=== PATIENT | male | born 1950 | race Caucasian/White ===

== ENCOUNTER 2019-04-04 16:06 | Emergency (ER) | payer OTHER ==
[2019-04-04 16:52] VITALS: BP 170/95; PULSE 65
--- NOTE | 2019-04-04 17:35 | EDM.PDOC ---
ED HPI GENERAL MEDICAL PROBLEM - General Chief Complaint: General Stated Complaint: ARTHRITIS Time Seen by Provider: 04/04/19 17:25 Source of Information: Reports: Patient, RN Notes Reviewed History Limitations: Reports: No Limitations - History of Present Illness INITIAL COMMENTS - FREE TEXT/NARRATIVE: 68-year-old gentleman presents emergency department a complaint of chest pain, he states he injured himself yesterday when he was working on his pickup changing oil he got into a certain position sudden onset of chest pain right side of his chest there is no nausea no vomiting no diaphoresis no shortness of breath he states he has had chest pain in the past when he exerts himself may last 10 to 15 minutes and then resolves he states he does exercise every morning without any chest pain. Does have a history of anxiety and is concerned about his heart - Related Data Allergies Allergy/AdvReac Type Severity Reaction Status Date / Time amlodipine Allergy Other Verified 04/04/19 17:10 chamomile flower Allergy Other Verified 04/04/19 17:10 diphenhydramine HCl Allergy Anaphylactic Verified 04/04/19 17:10 [From Benadryl] Shock levofloxacin Allergy Other Verified 04/04/19 17:10 magnesium hydroxide Allergy Swelling Verified 04/04/19 17:10 [From Milk of Magnesia] mirtazapine Allergy Other Verified 04/04/19 17:10 tamsulosin Allergy Other Verified 04/04/19 17:10 venom-honey bee Allergy Anaphylactic Verified 04/04/19 17:10 [bee venom (honey bee)] Shock Home Meds: Home Meds Acetaminophen [Non-Aspirin] 325 mg PO Q6HR PRN 02/23/13 [History] Clotrimazole [Clotrimazole 1%] 15 gm .XX BID PRN 02/23/13 [History] EPINEPHrine [Epipen] 0.3 mg IM ASDIRECTED PRN 02/23/13 [History] Nitroglycerin [Nitrostat] 0.4 mg SL ASDIRECTED PRN 02/23/13 [History] Psyllium [Metamucil] 1 scoop PO DAILY 02/23/13 [History] Betamethasone Dipropionate [Diprosone 0.05% Crm] 15 gm .XX BID PRN 10/23/16 [ History] Diclofenac Sodium [Voltaren] 100 gm TP BID PRN 10/23/16 [History] LORazepam 0.25 mg PO TID PRN 10/23/16 [History] Valsartan 160 mg PO DAILY PRN 10/23/16 [History] Past Medical History Cardiovascular History: Reports: Hypertension Genitourinary History: Reports: BPH, Renal Calculus Musculoskeletal History: Reports: Arthritis Psychiatric History: Reports: Anxiety, PTSD Social & Family History - Tobacco Use Smoking Status *Q: Never Smoker - Caffeine Use Caffeine Use: Reports: Coffee - Recreational Drug Use Recreational Drug Use: No ED ROS GENERAL - Review of Systems Review Of Systems: See Below Constitutional: Reports: No Symptoms HEENT: Reports: No Symptoms Respiratory: Reports: No Symptoms Cardiovascular: Reports: Chest Pain GI/Abdominal: Reports: No Symptoms ED EXAM, GENERAL - Physical Exam Exam: See Below Exam Limited By: No Limitations General Appearance: Alert, WD/WN, No Apparent Distress Respiratory/Chest: No Respiratory Distress, Lungs Clear, Normal Breath Sounds, No Accessory Muscle Use, Other (Tender to palpation between ribs 4 and 5 right side) Cardiovascular: Regular Rate, Rhythm, No Murmur GI/Abdominal: Soft, Non-Tender Course - Vital Signs Last Recorded V/S: Last Vital Signs Temp 96.5 F L 04/04/19 17:08 Pulse 65 04/04/19 17:08 Resp 16 04/04/19 17:08 BP 170/95 H 04/04/19 17:08 Pulse Ox 95 04/04/19 17:08 - Orders/Labs/Meds Orders: Active Orders 24 hr Category Date Time Status Cardiac Monitoring [RC] .As Directed Care 04/04/19 17:33 Active EKG Documentation Completion [RC] ASDIRECTED Care 04/04/19 17:34 Active EKG 12 Lead [EK] Stat Ther 04/04/19 17:34 Ordered Labs: Laboratory Tests 04/04/19 04/04/19 Range/Units 17:40 17:40 WBC 4.7 (4.5-11.0) K/uL RBC 5.22 (4.30-5.90) M/uL Hgb 14.9 (12.0-15.0) g/dL Hct 45.1 (40.0-54.0) % MCV 86 (80-98) fL MCH 29 (27-31) pg MCHC 33 (32-36) % Plt Count 261 (150-400) K/uL Neut % (Auto) 44 (36-66) % Lymph % (Auto) 42 (24-44) % [place] % (Auto) 12 H (2-6) % Eos % (Auto) 1 L (2-4) % Baso % (Auto) 1 (0-1) % Sodium 144 (140-148) mmol/L Potassium 3.9 (3.6-5.2) mmol/L Chloride 105 (100-108) mmol/L Carbon Dioxide 29 (21-32) mmol/L Anion Gap 9.8 (5.0-14.0) mmol/L BUN 12 (7-18) mg/dL Creatinine 0.9 (0.8-1.3) mg/dL Est Cr Clr Drug Dosing 78.11 mL/min Estimated GFR (MDRD) > 60 (>60) Glucose 99 (74-106) mg/dL Calcium 8.8 (8.5-10.1) mg/dL Total Bilirubin 0.5 (0.2-1.0) mg/dL AST 24 (15-37) U/L ALT 33 (12-78) U/L Alkaline Phosphatase 74 (46-116) U/L Troponin I < 0.017 (0.000-0.056) ng/mL Total Protein 7.6 (6.4-8.2) g/dL Albumin 4.0 (3.4-5.0) g/dL Globulin 3.6 H (2.3-3.5) g/dL Albumin/Globulin Ratio 1.1 L (1.2-2.2) Departure - Departure Time of Disposition: 18:16 Disposition: Home, Self-Care 01 Condition: Fair Clinical Impression: Chest wall pain - Discharge Information Instructions: Chest Wall Pain, [id number] Referrals: Alisa Victoria MD [Primary Care Provider] - Forms: ED Department Discharge Additional Instructions: Use ibuprofen as needed for pain control, please followup with your primary care provider in 3-5 days if not better, please call return to the emergency department with worsening of symptoms. Sepsis Event Note - Evaluation Sepsis Screening Result: No Definite Risk - Focused Exam Vital Signs: Vital Signs Temp Pulse Resp BP Pulse Ox 04/04/19 17:08 96.5 F L 65 16 170/95 H 95 04/04/19 16:51 96.5 F L 65 16 170/95 H 95 Date Exam was Performed: 04/04/19 Time Exam was Performed: 18:14 - My Orders Last 24 Hours: My Active Orders 04/04/19 17:33 Cardiac Monitoring [RC] .As Directed 04/04/19 17:34 EKG Documentation Completion [RC] ASDIRECTED EKG 12 Lead [EK] Stat - Assessment/Plan Last 24 Hours: My Active Orders 04/04/19 17:33 Cardiac Monitoring [RC] .As Directed 04/04/19 17:34 EKG Documentation Completion [RC] ASDIRECTED EKG 12 Lead [EK] Stat Plan: assesment: chest wall pain plan: ib as needed, f/u with pcp as needed
== END 2019-04-04 18:30 | disposition home or self-care (01) ==
LOC: JP.ED 16:06
DX: R07.89 Other chest pain (principal); I10 Essential (primary) hypertension; M19.90 Unspecified osteoarthritis, unspecified site; F41.9 Anxiety disorder, unspecified; Z88.8 Allergy status to other drugs, medicaments and biological substances; Z91.030 Bee allergy status; Z91.048 Other nonmedicinal substance allergy status; Z79.899 Other long term (current) drug therapy
CPT/HCPCS: 36415; 80053; 84484; 85025; 93005; 93010; 99283; 99285-25

== ENCOUNTER 2019-10-16 09:55 | Emergency (ER) | payer OTHER ==
[2019-10-16 10:17] VITALS: BP 160/87; PULSE 64
[2019-10-16] MEDS ORDERED: Cetirizine 10 MG Tab PO ONE (10:48)
[2019-10-16] MEDS ORDERED: Dexamethasone 4 MG/ML SDV PO ONE (10:48)
[2019-10-16] MEDS ORDERED: Dexamethasone 4 MG/ML SDV ONE (10:55)
--- NOTE | 2019-10-16 10:56 | EDM.PDOC ---
ED HPI GENERAL MEDICAL PROBLEM - General Chief Complaint: Bite:Animal, Insect Stated Complaint: BEE STINGS Time Seen by Provider: 10/16/19 10:50 Source of Information: Reports: Patient History Limitations: Reports: No Limitations - History of Present Illness INITIAL COMMENTS - FREE TEXT/NARRATIVE: Vinny is a 69 year old male, presents to the ED today after being stung in left arm by a bee, patient stung he thinks 3-4 times. Patient has hx of bee sting allergy, has epi-pens at home but did not use them, instead he called the nurse line who directed patient here. Patient c/o burning to left arm where he was stung, he denies any other reactions at the time of my exam which was approximately 1.5 hours s/p stings. Patient denies any sob, tongue swelling, difficulty swallowing or other complaints. Onset: Sudden - Related Data Allergies Allergy/AdvReac Type Severity Reaction Status Date / Time amlodipine Allergy Other Verified 10/16/19 10:23 chamomile flower Allergy Other Verified 10/16/19 10:23 diphenhydramine HCl Allergy Anaphylactic Verified 10/16/19 10:23 [From Benadryl] Shock levofloxacin Allergy Other Verified 10/16/19 10:23 magnesium hydroxide Allergy Swelling Verified 10/16/19 10:23 [From Milk of Magnesia] mirtazapine Allergy Other Verified 10/16/19 10:23 tamsulosin Allergy Other Verified 10/16/19 10:23 venom-honey bee Allergy Anaphylactic Verified 10/16/19 10:23 [bee venom (honey bee)] Shock Home Meds: Home Meds Acetaminophen [Non-Aspirin] 325 mg PO Q6HR PRN 02/23/13 [History] Clotrimazole [Clotrimazole 1%] 15 gm .XX BID PRN 02/23/13 [History] EPINEPHrine [Epipen] 0.3 mg IM ASDIRECTED PRN 02/23/13 [History] Nitroglycerin [Nitrostat] 0.4 mg SL ASDIRECTED PRN 02/23/13 [History] Psyllium [Metamucil] 1 scoop PO DAILY 02/23/13 [History] Betamethasone Dipropionate [Diprosone 0.05% Crm] 15 gm .XX BID PRN 10/23/16 [History] Diclofenac Sodium [Voltaren] 100 gm TP BID PRN 10/23/16 [History] LORazepam 0.25 mg PO TID PRN 10/23/16 [History] Valsartan 160 mg PO DAILY PRN 10/23/16 [History] Finasteride [Proscar] 1 tab PO DAILY 10/16/19 [History] Multivitamin [Multi-Vitamin Daily] 1 tab PO DAILY 10/16/19 [History] Past Medical History Cardiovascular History: Reports: Heart Murmur, Hypertension Genitourinary History: Reports: BPH, Renal Calculus Musculoskeletal History: Reports: Arthritis Psychiatric History: Reports: Anxiety, PTSD - Past Surgical History HEENT Surgical History: Reports: Cataract Surgery Other HEENT Surgeries/Procedures: lens implants GI Surgical History: Reports: Hernia, Inguinal Social & Family History - Tobacco Use Smoking Status *Q: Never Smoker - Caffeine Use Caffeine Use: Reports: Coffee - Recreational Drug Use Recreational Drug Use: No ED ROS GENERAL - Review of Systems Review Of Systems: Comprehensive ROS is negative, except as noted in HPI. ED EXAM, ANIMAL BITE - Physical Exam Exam: See Below Exam Limited By: No Limitations General Appearance: Alert, WD/WN, No Apparent Distress Ears: Normal External Exam Nose: Normal Inspection Throat/Mouth: Normal Inspection, Normal Lips, Normal Oropharynx, Normal Voice, No Airway Compromise Head: Atraumatic Neck: Normal Inspection, Supple, Non-Tender Respiratory/Chest: No Respiratory Distress, Lungs Clear, Normal Breath Sounds GI/Abdominal: Normal Bowel Sounds, Soft, Non-Tender Back Exam: Normal Inspection Extremities: Normal Inspection Neurological: Alert, Oriented, CN II-XII Intact Psychiatric: Normal Affect, Normal Mood Skin Exam: Normal Color, Warm/Dry, Other (small area of swelling and erythema to left forearm from bee sting) Course - Vital Signs Last Recorded V/S: Last Vital Signs Temp 37.1 C 10/16/19 10:31 Pulse 64 10/16/19 10:31 Resp 16 10/16/19 10:31 BP 160/87 H 10/16/19 10:31 Pulse Ox 97 10/16/19 10:31 Bee stings, no signs of systemic allergic reaction or anaphylaxis. Patient reports hx of Benadryl allergy although after speaking with him he isn't sure and reports he has taken Benadryl before without any issues. Patient given a dose of Zyrtec here and oral Decadron, no need for Epinephrine or monitoring at this time. Patient re-educated regarding any further potential bee sting reactions and the use of his epi pens. I discussed with patient reasons to return to the ED, he is agreeable to plan of care and discharged in stable condition. - Orders/Labs/Meds Orders: Active Orders 24 hr Category Date Time Status Cetirizine [ZyrTEC] Med 10/16/19 10:48 Once 10 mg PO ONETIME ONE dexAMETHasone [Dexamethasone] Med 10/16/19 10:48 Once 10 mg PO ONETIME ONE Departure - Departure Time of Disposition: 11:00 Disposition: Home, Self-Care 01 Condition: Good Clinical Impression: Bee sting Qualifiers: Encounter type: initial encounter Injury intent: accidental or unintentional Qualified Code(s): T63.441A - Toxic effect of venom of bees, accidental (unintentional), initial encounter - Discharge Information Instructions: Insect Bite, Adult, [id number] Referrals: PCP,None [Primary Care Provider] - Additional Instructions: If you are stung again, do not hesitate to use your epi pen. You can take Zyrtec or Claritin Daily for the next few days as needed for arm burning/redness. Ice areas that were stung as needed, no more than 20 minutes at a time. Ibuprofen as needed, return here with any worsening symptoms. Sepsis Event Note (ED) - Evaluation Sepsis Screening Result: No Definite Risk - Focused Exam Vital Signs: Vital Signs Temp Pulse Resp BP Pulse Ox 10/16/19 10:31 37.1 C 64 16 160/87 H 97 10/16/19 10:16 37.1 C 64 16 160/87 H 97 - My Orders Last 24 Hours: My Active Orders 10/16/19 10:48 Cetirizine [ZyrTEC] 10 mg PO ONETIME ONE dexAMETHasone [Dexamethasone] 10 mg PO ONETIME ONE - Assessment/Plan Last 24 Hours: My Active Orders 10/16/19 10:48 Cetirizine [ZyrTEC] 10 mg PO ONETIME ONE dexAMETHasone [Dexamethasone] 10 mg PO ONETIME ONE
== END 2019-10-16 11:07 | disposition home or self-care (01) ==
LOC: JP.ED 09:55
DX: T63.441A Toxic effect of venom of bees, accidental (unintentional), initial encounter (principal); I10 Essential (primary) hypertension; F41.9 Anxiety disorder, unspecified; Z79.899 Other long term (current) drug therapy; Z88.8 Allergy status to other drugs, medicaments and biological substances; Z91.030 Bee allergy status; Z91.048 Other nonmedicinal substance allergy status
CPT/HCPCS: 99282; A9270; J1100; 99281

== ENCOUNTER 2024-03-05 10:14 | Emergency (ER) | payer OTHER ==
[2024-03-05 11:07] LABS: BASOPHILS ABSOLUTE AUTO 0.06 K/uL (0.00-0.10); EOSINOPHILS PERCENT AUTO 0.3 % (0.0-5.4); HEMATOCRIT 41.7 % (38.4-49.7); HEMOGLOBIN 14.4 g/dL (12.9-16.9); IMMATURE GRAN PERCENT AUTO 0.2 % (0.0-0.7); LYMPHOCYTES ABSOLUTE AUTO 1.55 K/uL (0.8-3.3); LYMPHOCYTES PERCENT AUTO 26.2 % (11.4-47.7); MEAN CORPUSCULAR HEMOGLOBIN 30.3 pg (31.6-35.5); MEAN CORPUSCULAR HGB CONC 34.5 g/dL (31.6-35.5); MEAN CORPUSCULAR VOLUME 87.6 fL (81.4-99.0); MONOCYTES PERCENT AUTO 6.8 % (3.3-12.6); NEUTROPHILS ABSOLUTE AUTO 3.87 K/uL (1.0-7.6); NEUTROPHILS PERCENT AUTO 65.5 % (40.0-78.1); PLATELET COUNT,PLT 205 K/uL (130-375); RED BLOOD CELL COUNT 4.76 M/uL (4.14-5.76); WHITE BLOOD CELL COUNT,WBC 5.9 K/uL (3.2-11.0)
[2024-03-05 11:09] LABS: EOSINOPHILS ABSOLUTE AUTO 0.02 K/uL (0.00-0.40); IMMATURE GRAN ABSOLUTE AUTO 0.01 K/uL (0.00-0.23)
[2024-03-05 11:10] LABS: CALCIUM 8.7 mg/dL (8.5-10.1); CREATININE 1.1 mg/dL (0.8-1.3); EST CRCL DRUG DOSING (CG) 58.72 mL/min; POTASSIUM,K 3.7 mmol/L (3.6-5.2); TROPONIN I HIGH SENSITIVITY 28.4 pg/mL (<=60.3)
[2024-03-05] MEDS: Aspirin 81 MG Tab.Chew PO ONE (11:33)
[2024-03-05 13:12] VITALS: BP 150/93; PULSE 89
== END 2024-03-05 13:36 | disposition home or self-care (01) ==
LOC: JP.ED 10:14
DX: R07.89 Other chest pain (principal); I10 Essential (primary) hypertension; M19.90 Unspecified osteoarthritis, unspecified site; Z88.1 Allergy status to other antibiotic agents; Z88.8 Allergy status to other drugs, medicaments and biological substances; Z91.030 Bee allergy status; Z79.82 Long term (current) use of aspirin; Z79.899 Other long term (current) drug therapy
CPT/HCPCS: 36415; 71046; 80048; 84484; 85025; 99285; A9270